=== PATIENT | male | born 1960 | race Caucasian/White ===

== ENCOUNTER → 2016-11-12 | Outpatient (CLI) | payer MEDICARE | LOC: KOH-I 08:13 | DX: R10.9 Unspecified abdominal pain (principal) | CPT/HCPCS: 76700 ==

== ENCOUNTER 2016-12-26 06:12 | Emergency (ER) | payer MEDICARE ==
[2016-12-26 08:10] LABS: HEMOGLOBIN 15.6 gm/dl (14.0-17.5); RED BLOOD COUNT 4.84 M/UL (4.20-5.50); WHITE BLOOD COUNT 5.6 K/UL (4.5-11.0)
[2016-12-26 08:36] LABS: BUN/CREATININE RATIO 17 (0-10)
== END 2016-12-26 11:00 | disposition home or self-care (01) ==
LOC: ER1 06:12
PROVIDERS: Emergency Medicine
DX: S30.1XXA Contusion of abdominal wall, initial encounter (principal); S20.219A Contusion of unspecified front wall of thorax, initial encounter; W01.0XXA Fall on same level from slipping, tripping and stumbling without subsequent striking against object, initial encounter; I10 Essential (primary) hypertension; Y92.009 Unspecified place in unspecified non-institutional (private) residence as the place of occurrence of the external cause; Z79.899 Other long term (current) drug therapy
CPT/HCPCS: 36415; 71260; 80053; 84484; 85025; 96361; 96374; 96375; 99284; J2270; J2405; J7030; J7050; Q9962

== ENCOUNTER → 2017-02-01 | Outpatient (CLI) | payer MEDICARE | LOC: KOH-I 08:51 | DX: N28.1 Cyst of kidney, acquired (principal) | CPT/HCPCS: 76775 ==

== ENCOUNTER → 2017-05-29 | Outpatient (CLI) | payer MEDICARE | LOC: CT 07:35 | DX: R91.8 Other nonspecific abnormal finding of lung field (principal); E27.9 Disorder of adrenal gland, unspecified | CPT/HCPCS: 71260; J7050; Q9962 ==